=== PATIENT | female | born 1960 | race Caucasian/White ===

== ENCOUNTER 2021-04-26 11:03 | Inpatient (IN) | payer MEDICARE ==
[2021-04-26] MEDS ORDERED: Polyethylene Glycol 3350 Powder 17 GM Packet PO PRN (14:41)
[2021-04-26] MEDS ORDERED: Acetaminophen/HYDROcodone 325-5 MG Tab PO PRN (14:41)
[2021-04-26] MEDS: Ibuprofen 200 MG Tab PO SCH ×2 (15:50→20:55)
[2021-04-26] MEDS: Acetaminophen 500 MG Tab PO SCH ×2 (15:50→20:51)
--- NOTE | 2021-04-26 16:03 | PCM.HP.2 ---
H&P History of Present Illness - General Date of Service: 04/26/21 Admit Problem/Dx: Admission Diagnosis/Problem Admission Diagnosis/Problem Rehabilitation therapy Source of Information: Patient, Old Records History Limitations: Reports: Physical Impairment (hearing loss) - History of Present Illness Initial Comments - Free Text/Narative: Mayi presents for swing bed admission, had right TKA on 04/20, no complications. [facility] but Covid screen was positive, discharge was held as [facility] did not take covid pts. She had some sinus congestion, cold symptoms on but no fevers, chills, shortness of breath, chest pain, abdominal pain, nausea or vomiting. Urinating and defecating normal, had normal BM today. Mepilex dressing to right knee due to be changed on 04/27 with Aquacel AG dressing. She has congenital hearing loss, does NOT have hearing aids but has appt with audiology. She was given monoclonal antibody treatment on 04/24. Pain is controlled. On Diabetic diet, metformin bid. Right Knee Pain Score (Numeric/FACES): 5 - Related Data Home Medications: Home Meds Acetaminophen/HYDROcodone [HYDROcodone-Acetaminophen 5-325 MG *] 2 tab PO Q6H PRN 04/26/21 [History] Apixaban [Eliquis] 2.5 mg PO BID 04/26/21 [History] Dextroamphetamine/Amphetamine [Adderall 10 mg Tablet] 10 mg PO DAILY 04/26/21 [History] Docusate Sodium 100 mg PO BID 04/26/21 [History] FLUoxetine HCl [Fluoxetine HCl] 20 mg PO DAILY 04/26/21 [History] Fluticasone Propionate [Flonase] 1 spray NASBOTH BID 04/26/21 [History] Levothyroxine 150 mcg PO DAILY@0600 04/26/21 [History] Losartan/Hydrochlorothiazide [Losartan-HCTZ 50-12.5 MG] 1 tab PO DAILY 04/26/21 [History] Multivitamin-Min/Iron/FA/Vit K [Multi-Day Plus Minerals Tablet] 1 tab PO DAILY 04/26/21 [History] Nicotine [Nicotine Patch] 1 patch TOP DAILY 04/26/21 [History] Rosuvastatin [Crestor] 40 mg PO DAILY 04/26/21 [History] Vitamin B Complex 1 tab PO DAILY 04/26/21 [History] hydrOXYzine pamoate [Hydroxyzine Pamoate] 25 mg PO Q6H PRN 04/26/21 [History] metFORMIN HCl [Metformin HCl ER] 1,000 mg PO DAILY 04/26/21 [History] polyethylene glycoL 3350 [Miralax] 17 gm PO DAILY PRN 04/26/21 [History] Past Medical History HEENT History: Reports: Hard of Hearing, Impaired Vision, Sinusitis Cardiovascular History: Reports: High Cholesterol, Hypertension Respiratory History: Reports: SOB Neurological History: Reports: Headaches, Chronic Psychiatric History: Reports: Depression Endocrine/Metabolic History: Reports: Hypothyroidism, Obesity/BMI 30+ - Infectious Disease History Infectious Disease History: Reports: Novel Coronavirus - Past Surgical History Musculoskeletal Surgical History: Reports: Knee Replacement Social & Family History - Family History Family Medical History: No Pertinent Family History - Tobacco Use Tobacco Use Status *Q: Current Every Day Tobacco User Years of Tobacco use: 47 Packs/Tins Daily: 1.5 - Caffeine Use Caffeine Use: Reports: None - Recreational Drug Use Recreational Drug Use: No H&P Review of Systems - Review of Systems: Review Of Systems: Comprehensive ROS is negative, except as noted in HPI. Exam - Exam Exam: See Below - Vital Signs Vital Signs: Last Vital Signs Temp 97.8 F 04/26/21 14:30 Pulse 83 04/26/21 14:30 Resp 18 04/26/21 14:30 BP 114/57 L 04/26/21 14:30 Pulse Ox 92 L 04/26/21 14:38 Weight: 270 lb - Exam General: Alert, Oriented, Cooperative HEENT: PERRLA, EOMI, Mucosa Moist & [place]. No: Hearing Intact Lungs: Clear to Auscultation, Normal Respiratory Effort Cardiovascular: Regular Rate, Regular Rhythm GI/Abdominal Exam: Normal Bowel Sounds, Soft, Non-Tender, No Distention, Other (obese) Extremities: Pedal Edema (4+ RLE), Joint Swelling, Limited Range of Motion. No: Increased Warmth Peripheral Pulses: 1+: Posterior Tibial (R) (difficult to palpate due to postop swelling), Dorsalis Pedis (R) (difficult to palpate due to postop swelling), 2+: Radial (L), Radial (R), Posterior Tibial (L), Dorsalis Pedis (L) Skin: Warm, Dry, Ecchymosis (right leg), Incision (Mepilex dressing in place, right knee) Neurological: Cranial Nerves Intact, Normal Speech, Normal Tone Sepsis Event Note - Evaluation Sepsis Screening Result: No Definite Risk - Focused Exam Vital Signs: Vital Signs Temp Pulse Resp BP Pulse Ox Pulse Ox 04/26/21 14:38 92 L 04/26/21 14:30 97.8 F 83 18 114/57 L 92 L *Q Meaningful Use (ADM) - VTE *Q VTE Mechanical Contraindications *Q: At Risk for Falls - VTE Risk Assess *Q Each Risk Factor Represents 1 Point: Obesity ( BMI > 25 kg/m2) Total Score 1 Point Risk Factors: 1 Each Risk Factor Represents 2 Points: Age 60 - 74 Years, Major surgery greater than 45 minutes Total Score 2 Point Risk Factors: 4 Each Risk Factor Represents 3 Points: None Total Score 3 Point Risk Factors: 0 Each Risk Factor Represents 5 Points: Elective Major Lower Extremity Arthroplasty Total Score 5 Point Risk Factors: 5 Venous Thromboembolism Risk Factor Score *Q: 10 - Problem List (1) Status post total right knee replacement SNOMED Code(s): 0912983205691, 8619553550212 ICD Code: Z96.651 - PRESENCE OF RIGHT ARTIFICIAL KNEE JOINT Status: Acute Current Visit: Yes Onset Date: ~04/20/21 (2) SARS-CoV-2 positive SNOMED Code(s): 9299792835116965 ICD Code: U07.1 - COVID-19 Status: Acute Current Visit: Yes Onset Date: ~04/23/21 (3) Diabetes SNOMED Code(s): 39454201 ICD Code: E11.9 - TYPE 2 DIABETES MELLITUS WITHOUT COMPLICATIONS Status: Chronic Current Visit: Yes Qualifiers: 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-term use (4) Obesity, Class III, BMI 40-49.9 (morbid obesity) SNOMED Code(s): 248812972, 798516479, 00683411568881 ICD Code: E66.01 - MORBID (SEVERE) OBESITY DUE TO EXCESS CALORIES Status: Chronic Current Visit: Yes (5) Tobacco dependence SNOMED Code(s): 43289023 ICD Code: F17.200 - NICOTINE DEPENDENCE, UNSPECIFIED, UNCOMPLICATED Status: Chronic Current Visit: Yes (6) Congenital hearing disorder SNOMED Code(s): 19718139 ICD Code: H90.5 - UNSPECIFIED SENSORINEURAL HEARING LOSS Status: Chronic Current Visit: Yes Qualifiers: Laterality: bilateral Qualified Code(s): H90.5 - Unspecified sensorineural hearing loss Problem List Initiated/Reviewed/Updated: Yes Orders Last 24hrs: Active Orders 24 hr Category Date Time Status Patient Status [ADT] Routine ADT 04/26/21 14:38 Active Height and Weight [RC] WEEKLY Care 04/26/21 14:38 Active Oxygen Therapy [RC] PRN Care 04/26/21 14:38 Active Up With Assistance [RC] ASDIRECTED Care 04/26/21 14:37 Active Up to Chair [RC] ASDIRECTED Care 04/26/21 14:37 Active VTE/DVT Education [RC] Per Unit Routine Care 04/26/21 14:38 Active Vital Signs [RC] PER UNIT ROUTINE Care 04/26/21 14:38 Active OT Evaluation and Treatment [CONS] Routine Cons 04/26/21 14:40 Active PT Evaluation and Treatment [CONS] Routine Cons 04/26/21 14:37 Active Consistent Carbohydrate Diet [DIET] Diet 04/26/21 Dinner Active Acetaminophen [Tylenol Extra Strength] Med 04/26/21 14:45 Active 500 mg PO Q6H Acetaminophen/HYDROcodone [[place] 325-5 MG] Med 04/26/21 15:09 Active 1 tab PO Q6H PRN Apixaban [Eliquis] Med 04/26/21 21:00 Active 2.5 mg PO BID Docusate Sodium [Colace] Med 04/26/21 21:00 Active 100 mg PO BID FLUoxetine [PROzac] Med 04/27/21 09:00 Active 20 mg PO DAILY Fluticasone Propionate [Flonase] Med 04/26/21 21:00 Active 0 gm NASBOTH BID Ibuprofen [Motrin] Med 04/26/21 14:45 Active 200 mg PO Q6H Levothyroxine Med 04/27/21 06:00 Active 150 mcg PO DAILY@0600 Losartan [Cozaar] Med 04/27/21 09:00 Active 50 mg PO DAILY Multivitamins w-Iron/Ca/FA/Min [Thera M Plus] Med 04/27/21 09:00 Active 1 tab PO DAILY Nicotine [Habitrol] Med 04/27/21 09:00 Active 21 mg TOP DAILY Remove Patch Med 04/27/21 09:00 Active 1 ea TRDERM DAILY Rosuvastatin [Crestor] Med 04/27/21 09:00 Active 40 mg PO DAILY Vitamin B Complex with C [Total B With C] Med 04/27/21 09:00 Active 1 each PO DAILY hydrOXYzine HCL [Atarax] Med 04/26/21 15:19 Active 25 mg PO Q6H PRN hydroCHLOROthiazide Med 04/27/21 09:00 Active 12.5 mg PO DAILY metFORMIN [Glucophage XR] Med 04/27/21 09:00 Active 1,000 mg PO DAILY polyethylene glycoL 3350 [MiraLAX] Med 04/26/21 14:41 Active 17 gm PO DAILY PRN Code Status [Resuscitation Status] Routine Resus Stat 04/26/21 14:40 Ordered Medication Orders Acetaminophen (Acetaminophen 500 Mg Tab) 500 mg PO Q6H [facility] Last Admin: 04/26/21 15:50 Dose: 500 mg Documented by: ABE Hydrocodone Bitart/Acetaminophen (Acetaminophen/Hydrocodone 325-5 Mg Tab) 1 tab PO Q6H PRN PRN Reason: Pain Apixaban (Apixaban 5 Mg Tab) 2.5 mg PO BID JIMMIE Stop: 05/01/21 23:59 Docusate Sodium (Docusate Sodium 100 Mg Cap) 100 mg PO BID JIMMIE Fluoxetine HCl (Fluoxetine 20 Mg Cap) 20 mg PO DAILY [facility] [place] Fluticasone Propionate (Fluticasone Propionate Nasal Start 16 Gm Bottle) 0 gm NASBOTH BID [facility] Hydrochlorothiazide (Hydrochlorothiazide 12.5 Mg Cap) 12.5 mg PO DAILY [facility] Hydroxyzine HCl (Hydroxyzine Hcl 25 Mg Tab) 25 mg PO Q6H PRN PRN Reason: PAIN ADJUNCT Ibuprofen (Ibuprofen 200 Mg Tab) 200 mg PO Q6H [facility] Last Admin: 04/26/21 15:50 Dose: 200 mg Documented by: ABE Levothyroxine Sodium (Levothyroxine 150 Mcg Tab) 150 mcg PO DAILY@0600 [facility] Losartan Potassium (Losartan 50 Mg Tab) 50 mg PO DAILY [facility] Metformin HCl (Metformin 500 Mg Tab.Er) 1,000 mg PO DAILY [facility] Miscellaneous Information (Nicotine Patch) 1 ea TRDERM DAILY [facility] Multivitamins (Vitamin B Complex With Vitamin C Tab) 1 each PO DAILY [facility] Multivitamins/Minerals (Multivitamins With Iron/Calcium/Folic Acid/Minerals Tab) 1 tab PO DAILY [facility] Nicotine (Nicotine 21 Mg/24 Hr Patch) 21 mg TOP DAILY [facility] Polyethylene Glycol (Polyethylene Glycol 3350 Powder 17 Gm Packet) 17 gm PO DAILY PRN PRN Reason: Constipation Rosuvastatin Calcium (Rosuvastatin 20 Mg Tab) 40 mg PO DAILY JIM[facility]E Assessment/Plan Comment:: 1. Admit to swing bed for rehab after right TKA, covid positive. 2. S/p TKA: Tylenol 500 mg q6h & Ibuprofen 200 mg q6h, Hydrocodone/APAP 5/325 mg q6h as needed breakthrough pain. PT/OT evaluate & treat. Dressing change 04/27 with Aquacel AG dressing. F/u appt with Orthopedics 04/30. 3. Covid positive: Monoclonal ab on 04/24 in [place], describes cold/sinus infection symptoms but no shortness of breath, maintaining oxygen on room air. Isolation through 05/04. 4. DM: Metformin bid. 5. Tobacco dependence: Nicotine patch 21 mg daily. 6. Diet: Consistent carb diet. 7. Activity: up to chair & assistance. 8. CODE STATUS: FULL. 9. Discharge planning: to home once meets therapy goals. - Mortality Measure Prognosis:: Good
[2021-04-26] MEDS: Fluticasone Propionate Nasal Spray 16 GM Bottle NASBOTH SCH (20:52)
[2021-04-26] MEDS: Docusate Sodium 100 MG Cap PO SCH (20:52)
[2021-04-26] MEDS: Apixaban 5 MG Tab PO SCH (20:52)
[2021-04-26] MEDS: Acetaminophen/HYDROcodone 325-5 MG Tab PO PRN (22:26)
[2021-04-27] MEDS: Acetaminophen 500 MG Tab PO SCH ×4 (02:00→20:28)
[2021-04-27] MEDS: Ibuprofen 200 MG Tab PO SCH ×4 (02:00→20:29)
[2021-04-27] MEDS: Levothyroxine 150 MCG Tab PO SCH (06:19)
[2021-04-27] MEDS ORDERED: Non-Formulary Medication 1 Each (Losartan/Hydrochlorothiazide [Losartan-Hctz 50-12.5 Mg] 1 PO SCH (09:00)
[2021-04-27] MEDS: metFORMIN 500 MG Tab.ER PO SCH (09:46)
[2021-04-27] MEDS: Hydrochlorothiazide 12.5 MG Cap PO SCH (09:47)
[2021-04-27] MEDS: Losartan 50 MG Tab PO SCH (09:48)
[2021-04-27] MEDS: FLUoxetine 20 MG Cap PO SCH (09:53)
[2021-04-27] MEDS: Multivitamins with Iron/Calcium/Folic Acid/Minerals Tab PO SCH (09:54)
[2021-04-27] MEDS: Apixaban 5 MG Tab PO SCH ×2 (09:54→20:30)
[2021-04-27] MEDS: Docusate Sodium 100 MG Cap PO SCH (09:55)
[2021-04-27] MEDS: Rosuvastatin 20 MG Tab PO SCH (09:55)
[2021-04-27] MEDS: Fluticasone Propionate Nasal Spray 16 GM Bottle NASBOTH SCH ×2 (09:55→20:30)
[2021-04-27] MEDS: Nicotine 21 MG/24 Hr Patch TOP SCH (09:56)
[2021-04-27] MEDS: Vitamin B Complex with Vitamin C Tab PO SCH (09:57)
[2021-04-27] MEDS: NICOTINE PATCH TRDERM SCH (10:02)
[2021-04-27] MEDS ORDERED: Docusate Sodium 100 MG Cap PO PRN (18:39)
[2021-04-27] MEDS: Loperamide 2 MG Cap PO PRN (20:28)
[2021-04-28] MEDS: Acetaminophen/HYDROcodone 325-5 MG Tab PO PRN ×3 (00:11→22:27)
[2021-04-28] MEDS: hydrOXYzine HCl 25 MG Tab PO PRN ×2 (00:15→22:28)
[2021-04-28] MEDS: Ibuprofen 200 MG Tab PO SCH ×4 (01:59→20:03)
[2021-04-28] MEDS: Acetaminophen 500 MG Tab PO SCH ×4 (02:00→20:02)
[2021-04-28] MEDS: Levothyroxine 150 MCG Tab PO SCH (05:29)
[2021-04-28] MEDS: Losartan 50 MG Tab PO SCH (08:57)
[2021-04-28] MEDS: Apixaban 5 MG Tab PO SCH ×2 (08:58→20:02)
[2021-04-28] MEDS: Rosuvastatin 20 MG Tab PO SCH (08:58)
[2021-04-28] MEDS: metFORMIN 500 MG Tab.ER PO SCH (08:58)
[2021-04-28] MEDS: Fluticasone Propionate Nasal Spray 16 GM Bottle NASBOTH SCH ×2 (08:58→20:03)
[2021-04-28] MEDS: NICOTINE PATCH TRDERM SCH (08:59)
[2021-04-28] MEDS: Hydrochlorothiazide 12.5 MG Cap PO SCH (08:59)
[2021-04-28] MEDS: FLUoxetine 20 MG Cap PO SCH (08:59)
[2021-04-28] MEDS: Nicotine 21 MG/24 Hr Patch TOP SCH (08:59)
[2021-04-28] MEDS: Vitamin B Complex with Vitamin C Tab PO SCH (09:00)
[2021-04-28] MEDS: Multivitamins with Iron/Calcium/Folic Acid/Minerals Tab PO SCH (09:00)
[2021-04-28] MEDS: Loperamide 2 MG Cap PO PRN (19:58)
[2021-04-29] MEDS: Acetaminophen 500 MG Tab PO SCH ×4 (02:57→20:17)
[2021-04-29] MEDS: Ibuprofen 200 MG Tab PO SCH ×4 (02:58→20:18)
[2021-04-29] MEDS: Levothyroxine 150 MCG Tab PO SCH (05:04)
[2021-04-29] MEDS: metFORMIN 500 MG Tab.ER PO SCH (08:51)
[2021-04-29] MEDS: Apixaban 5 MG Tab PO SCH ×2 (08:52→20:17)
[2021-04-29] MEDS: Rosuvastatin 20 MG Tab PO SCH (08:52)
[2021-04-29] MEDS: Hydrochlorothiazide 12.5 MG Cap PO SCH (08:53)
[2021-04-29] MEDS: Fluticasone Propionate Nasal Spray 16 GM Bottle NASBOTH SCH ×2 (08:53→20:17)
[2021-04-29] MEDS: Multivitamins with Iron/Calcium/Folic Acid/Minerals Tab PO SCH (08:53)
[2021-04-29] MEDS: FLUoxetine 20 MG Cap PO SCH (08:53)
[2021-04-29] MEDS: Nicotine 21 MG/24 Hr Patch TOP SCH (08:54)
[2021-04-29] MEDS: Vitamin B Complex with Vitamin C Tab PO SCH (08:54)
[2021-04-29] MEDS: NICOTINE PATCH TRDERM SCH (08:55)
[2021-04-29] MEDS: Losartan 50 MG Tab PO SCH (08:56)
[2021-04-29] MEDS: Acetaminophen/HYDROcodone 325-5 MG Tab PO PRN ×2 (14:13→21:33)
[2021-04-30] MEDS: Ibuprofen 200 MG Tab PO SCH ×4 (02:16→20:45)
[2021-04-30] MEDS: Acetaminophen 500 MG Tab PO SCH ×4 (02:16→20:46)
[2021-04-30] MEDS: Acetaminophen/HYDROcodone 325-5 MG Tab PO PRN ×3 (03:35→18:50)
[2021-04-30] MEDS: Levothyroxine 150 MCG Tab PO SCH (05:26)
[2021-04-30] MEDS: Fluticasone Propionate Nasal Spray 16 GM Bottle NASBOTH SCH ×2 (08:23→20:47)
[2021-04-30] MEDS: Apixaban 5 MG Tab PO SCH ×2 (08:23→20:47)
[2021-04-30] MEDS: Multivitamins with Iron/Calcium/Folic Acid/Minerals Tab PO SCH (08:23)
[2021-04-30] MEDS: Rosuvastatin 20 MG Tab PO SCH (08:23)
[2021-04-30] MEDS: metFORMIN 500 MG Tab.ER PO SCH (08:24)
[2021-04-30] MEDS: FLUoxetine 20 MG Cap PO SCH (08:24)
[2021-04-30] MEDS: Hydrochlorothiazide 12.5 MG Cap PO SCH (08:24)
[2021-04-30] MEDS: Vitamin B Complex with Vitamin C Tab PO SCH (08:24)
[2021-04-30] MEDS: Nicotine 21 MG/24 Hr Patch TOP SCH (08:25)
[2021-04-30] MEDS: Losartan 50 MG Tab PO SCH (08:25)
[2021-04-30] MEDS: NICOTINE PATCH TRDERM SCH (08:26)
[2021-05-01] MEDS: Acetaminophen 500 MG Tab PO SCH ×4 (03:05→20:37)
[2021-05-01] MEDS: Ibuprofen 200 MG Tab PO SCH ×4 (03:06→20:38)
[2021-05-01] MEDS: Levothyroxine 150 MCG Tab PO SCH (05:24)
[2021-05-01] MEDS: Apixaban 5 MG Tab PO SCH ×2 (08:24→20:37)
[2021-05-01] MEDS: Vitamin B Complex with Vitamin C Tab PO SCH (08:24)
[2021-05-01] MEDS: Hydrochlorothiazide 12.5 MG Cap PO SCH (08:24)
[2021-05-01] MEDS: Fluticasone Propionate Nasal Spray 16 GM Bottle NASBOTH SCH ×2 (08:25→20:39)
[2021-05-01] MEDS: Rosuvastatin 20 MG Tab PO SCH (08:26)
[2021-05-01] MEDS: Acetaminophen/HYDROcodone 325-5 MG Tab PO PRN ×2 (08:26→17:56)
[2021-05-01] MEDS: Nicotine 21 MG/24 Hr Patch TOP SCH (08:27)
[2021-05-01] MEDS: Losartan 50 MG Tab PO SCH (08:27)
[2021-05-01] MEDS: metFORMIN 500 MG Tab.ER PO SCH (08:27)
[2021-05-01] MEDS: Multivitamins with Iron/Calcium/Folic Acid/Minerals Tab PO SCH (08:28)
[2021-05-01] MEDS: NICOTINE PATCH TRDERM SCH (08:28)
[2021-05-01] MEDS: FLUoxetine 20 MG Cap PO SCH (08:28)
[2021-05-01] MEDS ORDERED: Acetaminophen/HYDROcodone 325-5 MG Tab PO ONE (11:22)
[2021-05-02] MEDS: Acetaminophen 500 MG Tab PO SCH ×5 (01:51→20:54)
[2021-05-02] MEDS: Ibuprofen 200 MG Tab PO SCH ×5 (01:52→20:55)
[2021-05-02] MEDS: Levothyroxine 150 MCG Tab PO SCH (05:02)
[2021-05-02] MEDS: Rosuvastatin 20 MG Tab PO SCH (08:25)
[2021-05-02] MEDS: metFORMIN 500 MG Tab.ER PO SCH (08:25)
[2021-05-02] MEDS: Losartan 50 MG Tab PO SCH (08:25)
[2021-05-02] MEDS: Fluticasone Propionate Nasal Spray 16 GM Bottle NASBOTH SCH ×2 (08:25→20:56)
[2021-05-02] MEDS: FLUoxetine 20 MG Cap PO SCH (08:26)
[2021-05-02] MEDS: NICOTINE PATCH TRDERM SCH (08:26)
[2021-05-02] MEDS: Multivitamins with Iron/Calcium/Folic Acid/Minerals Tab PO SCH (08:26)
[2021-05-02] MEDS: Hydrochlorothiazide 12.5 MG Cap PO SCH (08:26)
[2021-05-02] MEDS: Nicotine 21 MG/24 Hr Patch TOP SCH (08:26)
[2021-05-02] MEDS: Vitamin B Complex with Vitamin C Tab PO SCH (08:26)
[2021-05-02] MEDS: Acetaminophen/HYDROcodone 325-5 MG Tab PO PRN ×2 (10:45→18:42)
[2021-05-03] MEDS: Acetaminophen 500 MG Tab PO SCH ×2 (01:45→08:23)
[2021-05-03] MEDS: Ibuprofen 200 MG Tab PO SCH ×2 (01:46→08:24)
[2021-05-03] MEDS: Levothyroxine 150 MCG Tab PO SCH (06:05)
--- NOTE | 2021-05-03 08:00 | PCM.DCSUM1 ---
Discharge Summary - Hospital Course HPI Initial Comments: Mayi presents for swing bed admission, had right TKA on 04/20, no complications. [facility] but Covid screen was positive, discharge was held as [facility] did not take covid pts. She had some sinus congestion, cold symptoms on but no fevers, chills, shortness of breath, chest pain, abdominal pain, nausea or vomiting. Urinating and defecating normal, had normal BM today. Mepilex dressing to right knee due to be changed on 04/27 with Aquacel AG dressing. She has congenital hearing loss, does NOT have hearing aids but has appt with audiology. She was given monoclonal antibody treatment on 04/24. Pain is controlled. On Diabetic diet, metformin bid Diagnosis: Stroke: No - Discharge Data Discharge Date: 05/03/21 Discharge Disposition: Home, Self-Care 01 Condition: Good - Referral to Home Health Primary Care Physician: PCP Not In Area - Discharge Diagnosis/Problem(s) (1) Status post total right knee replacement SNOMED Code(s): 1932539720450, [id number] ICD Code: Z96.651 - PRESENCE OF RIGHT ARTIFICIAL KNEE JOINT Status: Acute Current Visit: Yes Onset Date: ~04/20/21 (2) SARS-CoV-2 positive SNOMED Code(s): 8083566169005433 ICD Code: U07.1 - COVID-19 Status: Acute Current Visit: Yes Onset Date: ~04/23/21 (3) Diabetes SNOMED Code(s): 53299252 ICD Code: E11.9 - TYPE 2 DIABETES MELLITUS WITHOUT COMPLICATIONS Status: Chronic Current Visit: Yes Qualifiers: Diabetes mellitus penitentiary insulin use: without penitentiary use (4) Obesity, Class III, BMI 40-49.9 (morbid obesity) SNOMED Code(s): 283375720, 037822237, 56727468894671 ICD Code: E66.01 - MORBID (SEVERE) OBESITY DUE TO EXCESS CALORIES Status: Chronic Current Visit: Yes (5) Tobacco dependence SNOMED Code(s): 07949329 ICD Code: F17.200 - NICOTINE DEPENDENCE, UNSPECIFIED, UNCOMPLICATED Status: Chronic Current Visit: Yes (6) Congenital hearing disorder SNOMED Code(s): 91596542 ICD Code: H90.5 - UNSPECIFIED SENSORINEURAL HEARING LOSS Status: Chronic Current Visit: Yes Qualifiers: Laterality: bilateral Qualified Code(s): H90.5 - Unspecified sensorineural hearing loss - Patient Summary/Data Consults: Consultations 04/26/21 14:37 PT Evaluation and Treatment [CONS] Routine Please Evaluate and Treat. PT Reason for Consult: Strengthening This query below is only for informational purposes and is not editable. 04/26/21 14:40 OT Evaluation and Treatment [CONS] Routine Please Evaluate and Treat. OT Reason for Consult: ADL's This query below is only for informational purposes and is not editable. Hospital Course: Mayi has done well in therapy, has done stairs in her room. Her dayanna were removed on 04/30, with steri-strips placed. Steri-strips have fallen off now, incision is clean, dry and & intact. Her swelling has gone down significantly since admission, located more distal now. Icing her knee while awake. Pain controlled with Tylenol 500 & Ibuprofen 200 mg taken together every 6 hours, Hydrocodone 5/325 mg q6h as needed breakthrough pain, she has been taking 2- 3/day, down from admission. Advised to back off her stool softeners when she is not longer taking narcotics to avoid diarrhea. She was completed her course of Apixaban on 05/01 per discharge orders from [facility]. Follow up with Orthopedics as previously scheduled. - Patient Instructions Diet: Usual Diet as Tolerated Activity: As Tolerated Driving: Do Not Drive Showering/Bathing: May Shower Notify Provider of: Fever, Increased Pain Other/Special Instructions: Follow up with previously scheduled appts. - Discharge Plan *PRESCRIPTION DRUG MONITORING PROGRAM REVIEWED*: Not Applicable *COPY OF PRESCRIPTION DRUG MONITORING REPORT IN PATIENT ARABELLA: Not Applicable Prescriptions/Med Rec: Acetaminophen/HYDROcodone [HYDROcodone-Acetaminophen 5-325 MG *] 1 tab PO Q6H PRN #15 each PRN Reason: Breakthrough Pain Home Medications: Home Meds Dextroamphetamine/Amphetamine [Adderall 10 mg Tablet] 10 mg PO DAILY 04/26/21 [History] Docusate Sodium 100 mg PO BID 04/26/21 [History] FLUoxetine HCl [Fluoxetine HCl] 20 mg PO DAILY 04/26/21 [History] Fluticasone Propionate [Flonase] 1 spray NASBOTH BID 04/26/21 [History] Levothyroxine 150 mcg PO DAILY@0600 04/26/21 [History] Losartan/Hydrochlorothiazide [Losartan-HCTZ 50-12.5 MG] 1 tab PO DAILY 04/26/21 [History] Multivitamin-Min/Iron/FA/Vit K [Multi-Day Plus Minerals Tablet] 1 tab PO DAILY 04/26/21 [History] Rosuvastatin [Crestor] 40 mg PO DAILY 04/26/21 [History] Vitamin B Complex 1 tab PO DAILY 04/26/21 [History] hydrOXYzine pamoate [Hydroxyzine Pamoate] 25 mg PO Q6H PRN 04/26/21 [History] metFORMIN HCl [Metformin HCl ER] 1,000 mg PO DAILY 04/26/21 [History] polyethylene glycoL 3350 [Miralax] 17 gm PO DAILY PRN 04/26/21 [History] Acetaminophen [Tylenol Extra Strength] 500 mg PO Q6H tablet 05/02/21 [Rx] Ibuprofen [Motrin] 200 mg PO Q6H tablet 05/02/21 [Rx] Acetaminophen/HYDROcodone [HYDROcodone-Acetaminophen 5-325 MG *] 1 tab PO Q6H PRN #15 each 05/03/21 [Rx] Oxygen Therapy Mode: Room Air Patient Handouts: COVID-19, Total Knee Replacement, Care After, Fall Prevention in Hospitals, Adult, Venous Thromboembolism Prevention - Discharge Summary/Plan Comment DC Time >30 min.: No Total # of Minutes for Discharge Time: 10 min - General Info Date of Service: 05/03/21 Subjective Update: [place] out on Friday, she is feeling well, swelling down in her leg, feels more so in her foot now. Pain controlled. Going home today. Having regular BM, no diarrhea. Functional Status: Reports: Pain Controlled, Tolerating Diet, Ambulating, Urinating. Denies: New Symptoms - Patient Data Vitals - Most Recent: Last Vital Signs Temp 97.8 F 05/02/21 08:00 Pulse 77 05/02/21 08:00 Resp 18 05/02/21 08:00 BP 119/62 05/02/21 08:25 Pulse Ox 94 L 05/02/21 08:00 Weight - Most Recent: 265 lb 7 oz Lab Results - Last 24 hrs: Laboratory Results - last 24 hr 05/03/21 Range/Units 06:07 POC Glucose 115 (80-116) mg/dL Med Orders - Current: Current Medications Acetaminophen (Acetaminophen 500 Mg Tab) 500 mg PO Q6H [facility] Last Admin: 05/03/21 01:45 Dose: 500 mg Documented by: Hydrocodone Bitart/Acetaminophen (Acetaminophen/Hydrocodone 325-5 Mg Tab) 1 tab PO Q6H PRN PRN Reason: Pain Last Admin: 05/02/21 18:42 Dose: 1 tab Documented by: Docusate Sodium (Docusate Sodium 100 Mg Cap) 100 mg PO BID PRN PRN Reason: Constipation Fluoxetine HCl (Fluoxetine 20 Mg Cap) 20 mg PO DAILY [facility] Last Admin: 05/02/21 08:26 Dose: 20 mg Documented by: Fluticasone Propionate (Fluticasone Propionate Nasal [place] 16 Gm Bottle) 0 gm NASBOTH BID [facility] Last Admin: 05/02/21 20:56 Dose: 1 spray Documented by: Hydrochlorothiazide (Hydrochlorothiazide 12.5 Mg Cap) 12.5 mg PO DAILY [facility] Last Admin: 05/02/21 08:26 Dose: 12.5 mg Documented by: Hydroxyzine HCl (Hydroxyzine Hcl 25 Mg Tab) 25 mg PO Q6H PRN PRN Reason: PAIN ADJUNCT Last Admin: 04/28/21 22:28 Dose: 25 mg Documented by: Ibuprofen (Ibuprofen 200 Mg Tab) 200 mg PO Q6H [facility] Last Admin: 05/03/21 01:46 Dose: 200 mg Documented by: Levothyroxine Sodium (Levothyroxine 150 Mcg Tab) 150 mcg PO DAILY@0600 [facility] Last Admin: 05/03/21 06:05 Dose: 150 mcg Documented by: Loperamide HCl (Loperamide 2 Mg Cap) 2 mg PO Q4H PRN PRN Reason: Diarrhea Last Admin: 04/28/21 19:58 Dose: 2 mg Documented by: Losartan Potassium (Losartan 50 Mg Tab) 50 mg PO DAILY [facility] Last Admin: 05/02/21 08:25 Dose: 50 mg Documented by: Metformin HCl (Metformin 500 Mg Tab.Er) 1,000 mg PO DAILY [facility] Last Admin: 05/02/21 08:25 Dose: 1,000 mg Documented by: Miscellaneous Information (Nicotine Patch) 1 ea TRDERM DAILY [facility] Last Admin: 05/02/21 08:26 Dose: 1 ea Documented by: Multivitamins (Vitamin B Complex With Vitamin C Tab) 1 each PO DAILY [facility] Last Admin: 05/02/21 08:26 Dose: 1 each Documented by: Multivitamins/Minerals (Multivitamins With Iron/Calcium/Folic Acid/Minerals Tab) 1 tab PO DAILY [facility] Last Admin: 05/02/21 08:26 Dose: 1 tab Documented by: Nicotine (Nicotine 21 Mg/24 Hr Patch) 21 mg TOP DAILY [facility] Last Admin: 05/02/21 08:26 Dose: 21 mg Documented by: Polyethylene Glycol (Polyethylene Glycol 3350 Powder 17 Gm Packet) 17 gm PO DAILY PRN PRN Reason: Constipation Rosuvastatin Calcium (Rosuvastatin 20 Mg Tab) 40 mg PO DAILY [facility] Last Admin: 05/02/21 08:25 Dose: 40 mg Documented by: Discontinued Medications Hydrocodone Bitart/Acetaminophen (Acetaminophen/Hydrocodone 325-5 Mg Tab) 2 tab PO Q6H PRN PRN Reason: Pain Hydrocodone Bitart/Acetaminophen (Acetaminophen/Hydrocodone 325-5 Mg Tab) 1 tab PO ONETIME ONE Stop: 05/01/21 11:23 Last Admin: 05/01/21 12:00 Dose: 1 tab Documented by: Apixaban (Apixaban 5 Mg Tab) 2.5 mg PO BID [facility] Stop: 05/01/21 23:59 Last Admin: 05/01/21 20:37 Dose: 2.5 mg Documented by: Docusate Sodium (Docusate Sodium 100 Mg Cap) 100 mg PO BID [facility] Last Admin: 04/27/21 09:55 Dose: 100 mg Documented by: - Exam General: Reports: Alert, Oriented, Cooperative Lungs: Reports: Clear to Auscultation, Normal Respiratory Effort Cardiovascular: Reports: Regular Rate, Regular Rhythm GI/Abdominal Exam: Normal Bowel Sounds, Soft, Non-Tender, No Distention Extremities: Joint Swelling (right knee, improved, more distal now) Skin: Reports: Ecchymosis (right forearm, right knee) Wound/Incisions: Reports: Healing Well (Incision: C/D/I), No Drainage *Q Meaningful Use (DIS) - VTE *Q VTE Mechanical Contraindications *Q: At Risk for Falls
[2021-05-03] MEDS: metFORMIN 500 MG Tab.ER PO SCH (08:24)
[2021-05-03] MEDS: Fluticasone Propionate Nasal Spray 16 GM Bottle NASBOTH SCH (08:24)
[2021-05-03] MEDS: Multivitamins with Iron/Calcium/Folic Acid/Minerals Tab PO SCH (08:25)
[2021-05-03] MEDS: Nicotine 21 MG/24 Hr Patch TOP SCH (08:25)
[2021-05-03] MEDS: Vitamin B Complex with Vitamin C Tab PO SCH (08:25)
[2021-05-03] MEDS: FLUoxetine 20 MG Cap PO SCH (08:25)
[2021-05-03] MEDS: NICOTINE PATCH TRDERM SCH (08:26)
[2021-05-03] MEDS: Rosuvastatin 20 MG Tab PO SCH (08:26)
[2021-05-03] MEDS: Losartan 50 MG Tab PO SCH (08:26)
[2021-05-03] MEDS: Hydrochlorothiazide 12.5 MG Cap PO SCH (08:27)
== END 2021-05-03 09:15 | disposition home or self-care (01) | DRG 559 ==
LOC: FB.MS 14:11
PROVIDERS: ADMIT Family Medicine; ATTEND Family Medicine
PROC: 8E0ZXY6 Isolation (ICD-10-PCS; principal; 2021-04-27)
DX: Z47.1 Aftercare following joint replacement surgery (principal); U07.1 COVID-19; Z68.41 Body mass index [BMI] 40.0-44.9, adult; Z96.651 Presence of right artificial knee joint; E11.9 Type 2 diabetes mellitus without complications; E66.01 Morbid (severe) obesity due to excess calories; H90.3 Sensorineural hearing loss, bilateral; H54.7 Unspecified visual loss; E78.00 Pure hypercholesterolemia, unspecified; E03.9 Hypothyroidism, unspecified; F41.1 Generalized anxiety disorder; G47.33 Obstructive sleep apnea (adult) (pediatric); F43.10 Post-traumatic stress disorder, unspecified; E78.5 Hyperlipidemia, unspecified; F17.210 Nicotine dependence, cigarettes, uncomplicated; Z79.899 Other long term (current) drug therapy
CPT/HCPCS: 82947; 94150; 97110-GO; 97110-GP; 97116-GP; 97161-GP; 97165-GO; 97530-GO; 97535-GO; A9270-GY